=== PATIENT | male | born 1995 | race Two or more races ===

== ENCOUNTER 2023-02-20 20:21 | Emergency (ER) | payer SELFPAY ==
[~2023-02-20] VITALS: Ht 172.7 cm; Wt 113.4 kg
[2023-02-21] VITALS: PULSE 92; RESP 18; O2SAT 98
[2023-02-21 00:05] LABS: Basophils # (auto) 0 10 ^3/uL (0-0.2); Basophils % (auto) 0.4 % (0.0-2.0); Lymphocytes # (auto) 2.4 10 ^3/uL (0.4-5.4); Monocytes # (auto) 0.7 10 ^3/uL (0-1.3); Monocytes % (auto) 8.4 % (0.0-12.0); Nucleated Red Blood Cells % 0.1 %
[2023-02-21 00:08] LABS: Eosinophils # (auto) 0.5 10 ^3/uL (0-0.8); Eosinophils % (auto) 6.2 % (0.0-7.0); Hematocrit 39.8 % (41.0-53.0); Lymphocytes % (auto) 29.4 % (10.0-50.0); Mean Corpuscular Hemoglobin 25.8 pg (28.0-32.0); Mean Corpuscular Hgb Conc. 32.7 g/dL (32.0-36.0); Neutrophils # (auto) 4.5 10 ^3/uL (1.6-8.6); Neutrophils % (auto) 55.6 % (37.0-80.0); Red Blood Cells 5.04 10^6/uL (4.5-5.90); Red Cell Distribution Width 18.3 % (11.8-14.3); White Blood Cell 8.2 10^3/uL (4.4-10.8)
[2023-02-21 00:23] LABS: Alanine Aminotransferase 37 U/L (7-40); Albumin 4.4 g/dL (3.2-4.8); Alkaline Phosphatase 133 U/L (46-116); Anion Gap 8 (5-15); Aspartate Aminotransferase 26 U/L (13-40); BUN/Creatinine Ratio 7.9 (10.0-20.0); Blood Alcohol < 3.0 mg/dL (<10); Blood Urea Nitrogen 7 mg/dL (9-23); Calcium 9.3 mg/dL (8.7-10.4); Carbon Dioxide 25 mmol/L (20-30); Chloride 105 mmol/L (98-107); Glucose 108 mg/dL (74-106); Lipase 40 U/L (12-53); Potassium 3.8 mmol/L (3.5-5.1); Sodium 138 mmol/L (136-145)
[2023-02-21 00:24] LABS: Bilirubin, Total 0.5 mg/dL (0.2-1.0); Total Protein 7.5 g/dL (5.7-8.2)
[2023-02-21 07:50] VITALS: RESP 15; O2SAT 100
[2023-02-21 13:02] LABS: Amphetamine Screen, Urine Pos (NEGATIVE); Barbiturate Scree,Urine Neg (NEGATIVE); Benzodiazephine Screen, Urine Neg (NEGATIVE); Cocaine Screen, Urine Neg (NEGATIVE); Opiate Scree,Urine Neg (NEGATIVE)
[2023-02-21 13:03] LABS: Cannabinoid Screen, Urine Neg (NEGATIVE); Phencyclidine Screen, Urine Neg (NEGATIVE)
[2023-02-21 13:16] LABS: Urine Bacteria NONE SEEN /hpf (None Seen); Urine Blood Negative /uL (Negative); Urine Clarity HAZY (Clear); Urine Color Yellow (Yellow); Urine Mucus MODERATE (None Seen); Urine Protein, UAD 1+ (Negative); Urine Specific Gravity 1.036 (1.001-1.035); Urine WBC 9 /hpf (0 - 3)
[2023-02-21] MEDS: FOLIC ACID 1 MG, MULTIPLE VITAMIN 10 ML, MAGNESIUM SULF SDV 50% 8 MEQ, THIAMINE INJ 100... INJ SCH ×5 (14:03)
[2023-02-21 20:00] VITALS: PULSE 88; O2SAT 99
[2023-02-21] MEDS: OLANZapine 5 MG TAB PO SCH (22:00)
[2023-02-22] MEDS: FLUoxetine HCL 20 MG CAP PO SCH (09:53)
[2023-02-22 10:30] VITALS: RESP 15; O2SAT 100
[2023-02-22] MEDS: FOLIC ACID 1 MG, MULTIPLE VITAMIN 10 ML, MAGNESIUM SULF SDV 50% 8 MEQ, THIAMINE INJ 100... INJ SCH ×5 (15:16)
[2023-02-22] MEDS: OLANZapine 5 MG TAB PO SCH (22:33)
[2023-02-23 07:30] VITALS: PULSE 93; RESP 17; O2SAT 98
[2023-02-23] MEDS: FLUoxetine HCL 20 MG CAP PO SCH (10:49)
[2023-02-23] MEDS: FOLIC ACID 1 MG, MULTIPLE VITAMIN 10 ML, MAGNESIUM SULF SDV 50% 8 MEQ, THIAMINE INJ 100... INJ SCH ×5 (18:24)
[2023-02-23] MEDS: OLANZapine 5 MG TAB PO SCH (22:10)
[2023-02-24 07:35] VITALS: RESP 16; O2SAT 98
[2023-02-24] MEDS: FLUoxetine HCL 20 MG CAP PO SCH (10:38)
[2023-02-24] MEDS: OLANZapine 5 MG TAB PO SCH (22:34)
[2023-02-25 08:50] VITALS: PULSE 78; RESP 14; O2SAT 99
[2023-02-25] MEDS ORDERED: FLUoxetine HCL 20 MG CAP PO SCH (10:40)
[2023-02-25 19:30] VITALS: PULSE 114; RESP 20; O2SAT 96
[2023-02-25] MEDS: OLANZapine 5 MG TAB PO SCH (22:45)
[2023-02-25] MEDS ORDERED: OLANZapine 5 MG TAB ONE (22:45)
[2023-02-26 07:46] VITALS: BP 126/93; PULSE 103; RESP 20; TEMP 98.1; O2SAT 99
[2023-02-26] MEDS ORDERED: FLUoxetine HCL 20 MG CAP PO SCH (10:00)
== END 2023-02-26 17:39 | disposition home or self-care (01) ==
LOC: ER 20:21
DX: R45.851 Suicidal ideations (principal)
CPT/HCPCS: 36415; 80053; 80307; 80320; 81001; 83690; 83880; 84484; 85025; 99285; J3411; J3475; J7030